=== PATIENT | female | born 1990 | race Caucasian/White ===

== ENCOUNTER 2017-04-06 22:01 | Emergency (ER) | payer OTHER ==
[~2017-04-06] VITALS: Ht 160 cm; Wt 54.5 kg
[~2017-04-06 22:01] MED LIST: DEXT15SY; PSEU30TA
[2017-04-06 22:06] VITALS: Ht 160 cm; Wt 54.5 kg
[2017-04-06] MEDS ORDERED: BEN50 PO (22:36)
[2017-04-06] MEDS ORDERED: DIPHENHYDRAMINE 50 MG INJ IM ONE (23:00)
--- NOTE | 2017-04-17 01:33 | ERD ---
ER Documentation Chief Complaint Date/Time DATE: 04/17/17 TIME: 01:31 Chief Complaint generalized body rash possibly from spider bite, on acutane no sob HPI This is a 27-year-old female presenting to the emergency department complaining of a rash throughout her body for the past day. Patient states that it is very itchy, she denies any pain. Patient states that she is currently on Accutane ROS All systems reviewed and are negative except as per history of present illness. Medications Home Meds Active Scripts Diphenhydramine Hcl* (Benadryl*) 50 Mg Cap, 50 MG PO Q6 Y for ITCHING, #30 CAP Prov:LEMULENinoskaALEC PA-C 04/06/17 Reported Medications Dextromethorphan Hbr (Robitussin) 15 Mg/5 Ml Syrup 10/05/10 Pseudoephedrine Hcl (Sudafed) 30 Mg Tablet 10/05/10 Allergies Allergies: Coded Allergies: No Known Drug Allergies (Verified Allergy, Mild, 04/06/17) PMhx/Soc Medical and Surgical Hx: pt denies Surgical Hx History of Surgery: No Anesthesia Reaction: No Hx Neurological Disorder: No Hx Respiratory Disorders: No Hx Cardiac Disorders: No Hx Psychiatric Problems: No Hx Miscellaneous Medical Probl: Yes (IRREGULAR PERIODS, acne) Hx Alcohol Use: No Hx Substance Use: No Hx Tobacco Use: No Physical Exam Physical Exam Const: [] Head: Atraumatic Eyes: Normal Conjunctiva ENT: Normal External Ears, Nose and Mouth. Neck: Full range of motion..~ No meningismus. Resp: Clear to auscultation bilaterally Cardio: Regular rate and rhythm, no murmurs Abd: Soft, non tender, non distended. Normal bowel sounds Skin: Erythematous maculopapular rash throughout body, blanchable Back: No midline or flank tenderness Ext: No cyanosis, or edema Neur: Awake and alert Psych: Normal Mood and Affect Results 24 hrs Current Medications Medications (Trade) Dose Ordered Sig/Reyes Route PRN Reason Start Time Stop Time Status Last Admin Dose Admin Diphenhydramine HCl (Benadryl) 50 mg ONCE ONCE IM 04/06/17 23:00 04/06/17 23:01 DC 04/06/17 22:53 Procedures/MDM This is a 19-year-old female presenting to the emergency department complaining of a rash throughout body which appears to be an allergic dermatitis. There was no evidence of anaphylaxis. Patient was given prescription for Benadryl which she had some improvement. Discussed the follow-up with options trader. Discussed return to the ER for worsening sinus symptoms patient understands and agrees with this plan Departure Diagnosis: Primary Impression: Allergic reaction Condition: Stable Patient Instructions: Dermatitis, Non-Specific Referrals: Your options trader Additional Instructions: FOLLOW UP WITH YOUR CASHIER OR CHECKER STOCK CLERK TOMORROW.Return to this facility if you are not improving as expected. Return to this facility if you are not improving as expected. Take all medicines as directed. You have been given a medicine which may cause drowsiness.DO NOT DRIVE OR OPERATE DANGEROUS MACHINERY while taking this medicine! ALEC JSOEPH PA-C Apr 17, 2017 01:33
== END 2017-04-06 23:14 | disposition left against medical advice (07) ==
LOC: FTE 22:01
DX: R21 Rash and other nonspecific skin eruption (principal)
CPT/HCPCS: 96372; J1200; Z7502